=== PATIENT | female | born 1985 | race Caucasian/White ===

== ENCOUNTER 2020-10-12 16:18 | Emergency (ER) | payer OTHER, MEDICAID ==
[~2020-10-12] VITALS: Ht 160 cm; Wt 130.0 kg
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
[2020-10-12 17:27] VITALS: BP 142/95
== END 2020-10-12 17:27 | disposition home or self-care (01) ==
LOC: ER 16:21
DX: S16.1XXA Strain of muscle, fascia and tendon at neck level, initial encounter (principal); V89.2XXA Person injured in unspecified motor-vehicle accident, traffic, initial encounter
CPT/HCPCS: 72100; 72125

== ENCOUNTER 2022-11-06 15:43 | Emergency (ER) | payer MEDICAID ==
[~2022-11-06] VITALS: Ht 160 cm; Wt 132.0 kg
[2022-11-06] MEDS ORDERED: NS IV 1000 ML 1,000 ML IV STA (15:49)
--- NOTE | 2022-11-06 15:53 | ED General ---
General Chief Complaint: General Problems/Pain Stated Complaint: N/V - HEADACHE - CHEST PAIN Nursing Triage Note: PT CO OF N/V TODAY DENIES DIARRHEA. STATES HAS HAD INTERMITTENT C/P TODAY. PT ALSO CO OF DIZZINESS. Source of Information: Patient Exam Limitations: No Limitations History of Present Illness Date Seen by Provider: November 06, 2022 Time Seen by Provider: 15:50 Initial Comments Patient is a 37-year-old female with a history of type 2 diabetes, hypertension who presents ED with nausea, vomiting, diarrhea and chest pain. Patient states she woke up this morning had 2 episodes of vomiting 2 episodes of diarrhea without any blood, mucus or bile. She reports intermittent substernal chest pain described as someone sitting on her chest. Last for about 2030 minutes. Associate shortness of breath. Not associated with the vomiting or diarrhea. Denies of any current chest pain, cough, shortness of breath, abdominal pain, dysuria. She did report some dizziness and lightheadedness today which only complaint on arrival is lightheadedness. She reports her blood sugars well controlled. Normal urination. No fever, chills, body aches, neck pain, visual changes, unilateral muscle weakness or sensory changes. No known cardiac history. Allergies and Home Medications Allergies Coded Allergies: Penicillins (Verified Allergy, Unknown, 11/06/22) latex (Verified Allergy, Unknown, 11/06/22) Patient Home Medication List Home Medication List Reviewed: Yes Ondansetron (Ondansetron Odt) 4 Mg Tab.rapdis, 4 MG SL Q4H PRN for NAUSEA/VOMITING Prescribed by: LIZABETH ZUNIGA on 11/06/22 8818 Review of Systems Review of Systems Constitutional: No diaphoresis, No fever; malaise, weakness EENTM: No ear pain, No blurred vision, No double vision Respiratory: No cough, No dyspnea on exertion, No short of breath, No wheezing Cardiovascular: chest pain Gastrointestinal: No abdominal pain; diarrhea, nausea, vomiting Genitourinary: No decreased output, No discharge Musculoskeletal: No back pain, No joint pain Skin: No change in color, No change in hair/nails All Other Systems Reviewed Negative Unless Noted: Yes Past Agkdsux-Rfxwrl-Xnwpru Hx Past Medical History Surgeries: Yes Respiratory: No Cardiac: No Neurological: No Genitourinary: No Gastrointestinal: No Musculoskeletal: No Endocrine: Yes Diabetes, Non-Insulin dep HEENT: No Cancer: No Psychosocial: Yes Bipolar, Depression Integumentary: No Physical Exam Vital Signs Vital Signs - First Documented 11/06/22 15:45 Temp 36.0 Pulse 91 Resp 18 B/P (MAP) 143/78 (99) Pulse Ox 100 Capillary Refill : Less Than 3 Seconds Height, Weight, BMI Height: '" Weight: lbs. oz. kg; 51.00 BMI Method: General Appearance: No Apparent Distress, WD/WN Eyes: Bilateral Eye Normal Inspection, Bilateral Eye PERRL, Bilateral Eye EOMI HEENT: PERRL/EOMI, TMs Normal, Normal ENT Inspection, Pharynx Normal Neck: Full Range of Motion, Normal Inspection, Non Tender, Supple Respiratory: Chest Non Tender, Lungs Clear, Normal Breath Sounds, No Accessory Muscle Use, No Respiratory Distress Cardiovascular: Regular Rate, Rhythm, No Edema, No Gallop, No JVD Gastrointestinal: Normal Bowel Sounds, No Organomegaly, No Pulsatile Mass, Non Tender Back: Normal Inspection, No CVA Tenderness, No Vertebral Tenderness Extremity: Normal Capillary Refill, Normal Inspection, Normal Range of Motion, Non Tender Neurologic/Psychiatric: Alert, Oriented x3, No Motor/Sensory Deficits, Normal Mood/Affect, 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 Skin: Normal Color, Warm/Dry Progress/Results/Core Measures Suspected Sepsis SIRS Temperature: Pulse: 91 Respiratory Rate: 18 Laboratory Tests 11/06/22 15:50: White Blood Count 11.1H Blood Pressure 143 /78 Mean: 99 Laboratory Tests 11/06/22 15:50: Creatinine 0.85, Platelet Count 308, Total Bilirubin 0.4 Results/Orders Lab Results Laboratory Tests Test 11/06/22 15:50 11/06/22 16:00 11/06/22 18:11 Range/Units White Blood Count 11.1 H 4.3-11.0 10^3/uL Red Blood Count 4.17 3.80-5.11 10^6/uL Hemoglobin 12.1 11.5-16.0 g/dL Hematocrit 37 35-52 % Mean Corpuscular Volume 89 80-99 fL Mean Corpuscular Hemoglobin 29 25-34 pg Mean Corpuscular Hemoglobin Concent 33 32-36 g/dL Red Cell Distribution Width 13.0 10.0-14.5 % Platelet Count 308 130-400 10^3/uL Mean Platelet Volume 10.8 9.0-12.2 fL Immature Granulocyte % (Auto) 0 % Neutrophils (%) (Auto) 58 42-75 % Lymphocytes (%) (Auto) 36 12-44 % Monocytes (%) (Auto) 4 0-12 % Eosinophils (%) (Auto) 1 0-10 % Basophils (%) (Auto) 1 0-10 % Neutrophils # (Auto) 6.5 1.8-7.8 10^3/uL Lymphocytes # (Auto) 4.0 1.0-4.0 10^3/uL Monocytes # (Auto) 0.4 0.0-1.0 10^3/uL Eosinophils # (Auto) 0.1 0.0-0.3 10^3/uL Basophils # (Auto) 0.1 0.0-0.1 10^3/uL Immature Granulocyte # (Auto) 0.0 0.0-0.1 10^3/uL Sodium Level 140 135-145 MMOL/L Potassium Level 3.7 3.6-5.0 MMOL/L Chloride Level 106 98-107 MMOL/L Carbon Dioxide Level 22 21-32 MMOL/L Anion Gap 12 5-14 MMOL/L Blood Urea Nitrogen 13 7-18 MG/DL Creatinine 0.85 0.60-1.30 MG/DL Estimat Glomerular Filtration Rate 89 BUN/Creatinine Ratio 15 Glucose Level 157 H 70-105 MG/DL Calcium Level 8.9 8.5-10.1 MG/DL Corrected Calcium 9.1 8.5-10.1 MG/DL Magnesium Level 1.9 1.6-2.4 MG/DL Total Bilirubin 0.4 0.1-1.0 MG/DL Aspartate Amino Transf (AST/SGOT) 16 5-34 U/L Alanine Aminotransferase (ALT/SGPT) 22 0-55 U/L Alkaline Phosphatase 77 40-136 U/L Troponin I < 0.028 < 0.028 <0.028 NG/ML Total Protein 7.2 6.4-8.2 GM/DL Albumin 3.8 3.2-4.5 GM/DL Lipase 16 8-78 U/L Urine Color YELLOW Urine Clarity CLEAR Urine pH 6.0 5-9 Urine Specific [place] 1.020 1.016-1.022 Urine Protein NEGATIVE NEGATIVE Urine Glucose (UA) NEGATIVE NEGATIVE Urine Ketones NEGATIVE NEGATIVE Urine Nitrite NEGATIVE NEGATIVE Urine Bilirubin NEGATIVE NEGATIVE Urine Urobilinogen 0.2 < = 1.0 MG/DL Urine Leukocyte Esterase NEGATIVE NEGATIVE Urine RBC (Auto) NEGATIVE NEGATIVE Urine RBC NONE /HPF Urine WBC 0-2 /HPF Urine Squamous Epithelial Cells 5-10 /HPF Urine Crystals PRESENT H /LPF Urine Amorphous Sediment RARE PENELOPE URATES H /LPF Urine Bacteria FEW H /HPF Urine Casts NONE /LPF Urine Mucus SMALL H /LPF Urine Culture Indicated NO My Orders Orders - MELISSA GOODEN PA Ekg Tracing (11/06/22 15:45) Cbc With Automated Diff (11/06/22 15:49) Comprehensive Metabolic Panel (11/06/22 15:49) Lipase (11/06/22 15:49) Magnesium (11/06/22 15:49) Troponin I Michael (11/06/22 15:49) Chest 1 View, Ap/Pa Only (11/06/22 15:49) Ua Culture If Indicated (11/06/22 15:49) Ns Iv 1000 Ml (Sodium Chloride 0.9%) (11/06/22 15:49) Ondansetron Injection (Zofran Injectio (11/06/22 16:00) Troponin I Leslie (11/06/22 17:50) Medications Given in ED Current Medications Medications Dose Ordered Sig/Gonzalez Route Start Time Stop Time Status Last Admin Dose Admin Ondansetron HCl 4 mg ONCE ONCE IVP 11/06/22 16:00 11/06/22 16:01 DC 11/06/22 15:59 4 MG Vital Signs/I&O 11/06/22 11/06/22 15:45 19:02 Temp 36.0 Pulse 91 90 Resp 18 18 B/P (MAP) 143/78 (99) 137/84 Pulse Ox 100 100 Capillary Refill : Less Than 3 Seconds Blood Pressure Mean: 99 ECG Comment Normal sinus rhythm, 85 bpm, QRS duration 84 MS, QTc 392 MS Departure Communication (PCP) Reviewed previous ER visits, H&P, lab testing. Differential diagnosis of viral syndrome, ACS, costochondritis, pneumonia, gastroenteritis, UTI. No current chest pain. Intermittent chest pressure today with episodes of vomiting diarrhea lightheadedness headache. Refused anything for pain. Patient was given dose of Zofran for nausea and started on liter of fluid. She was afebrile. She was not hypoxic or tachycardic. No recent travels or surgeries. Low perc score. Heart score of 2. Hypertension and diabetes well controlled. EKG showed normal sinus rhythm without evidence of ST elevation or depression. Chest x-ray was negative for pneumonia, pneumothorax, mediastinal widening. General lab work with cardiac work-up was ordered. CBC, CMP was grossly unremarkable. Normal troponin. Urinalysis was negative for infection. Due to the chest pain and with cardiac risk factors a delta troponin was ordered which returned normal. She remained asymptomatic at this time here. Unclear if this is cardiac in nature. No pain with eating. Other sources would be esophagitis, gastritis, pleurisy. No right upper quadrant epigastric tenderness on palpation suggesting surgical abdomen. However due to the low heart score recommend outpatient follow-up. Provided cardiology outpatient follow-up. If any worsening pain to return back to ED. She may have associated viral syndrome with the vomiting and diarrhea. Will discharge with Zofran. Recommend oral hydration, Pedialyte. If any worsening symptoms return back to ED for further evaluation Impression Primary Impression: Chest pain Disposition: 01 HOME, SELF-CARE Condition: Stable Departure-Patient Inst. Decision time for Depature: 18:41 Referrals: [facility] [place] Primary Care Physician SNEHA MOMIN MD Patient Instructions: Chest Pain, Adult ED Add. Discharge Instructions: Zofran for nausea. Recommend staying hydrated. Drink Pedialyte. Outpatient cardiac follow-up for chest pain. Provided number and discharge instruction. Return back to ED if symptoms worsen. Clear liquid diet over the next 48 hours. All discharge instructions reviewed with patient and/or family. Voiced understanding. Scripts Ondansetron (Ondansetron Odt) 4 Mg Tab.rapdis 4 MG SL Q4H PRN for NAUSEA/VOMITING, #6 TAB Prov: MELISSA GOODEN 11/06/22 Work/School Note: Work Release Form Date Seen in the Emergency Department: November 06, 2022 Return to Work: November 08, 2022 MELISSA GOODEN November 06, 2022 15:52
[2022-11-06 15:57] LABS: BASOPHILS # (AUTO) 0.1 10^3/uL (0.0-0.1); BASOPHILS % (AUTO) 1 % (0-10); EOSINOPHILS # (AUTO) 0.1 10^3/uL (0.0-0.3); EOSINOPHILS % (AUTO) 1 % (0-10); HEMATOCRIT 37 % (35-52); HEMOGLOBIN 12.1 g/dL (11.5-16.0); LYMPHOCYTES % (AUTO) 36 % (12-44); MEAN CORPUSCULAR HEMOGLOBIN 29 pg (25-34); MEAN CORPUSCULAR HGB CONC 33 g/dL (32-36); MEAN CORPUSCULAR VOLUME 89 fL (80-99); MEAN PLATELET VOLUME 10.8 fL (9.0-12.2); MONOCYTES # (AUTO) 0.4 10^3/uL (0.0-1.0); MONOCYTES % (AUTO) 4 % (0-12); NEUTROPHILS # (AUTO) 6.5 10^3/uL (1.8-7.8); NEUTROPHILS % (AUTO) 58 % (42-75); PLATELET COUNT 308 10^3/uL (130-400); WHITE BLOOD COUNT 11.1 10^3/uL (4.3-11.0)
[2022-11-06] MEDS ORDERED: ONDANSETRON 4 MG/2 ML (SDV) Z0FRAN IVP ONE (16:00)
[2022-11-06 16:11] LABS: BILIRUBIN,URINE NEGATIVE (NEGATIVE); CLARITY,URINE CLEAR; COLOR,URINE YELLOW; GLUCOSE, URINE (UA) NEGATIVE (NEGATIVE); KETONES,URINE NEGATIVE (NEGATIVE); LEUKOCYTE ESTERASE ,URINE NEGATIVE (NEGATIVE); NITRITE,URINE NEGATIVE (NEGATIVE); PROTEIN,URINE NEGATIVE (NEGATIVE)
[2022-11-06 16:11] LABS: ALBUMIN 3.8 GM/DL (3.2-4.5); CHLORIDE 106 MMOL/L (98-107); POTASSIUM 3.7 MMOL/L (3.6-5.0); SODIUM 140 MMOL/L (135-145)
[2022-11-06 16:12] LABS: CALCIUM 8.9 MG/DL (8.5-10.1)
--- NOTE | 2022-11-06 16:12 | Diagnostic Imaging Report ---
INDICATION: Chest pain. EXAMINATION: Single AP view of chest was obtained. COMPARISON: No previous study is available for comparison at this time. FINDINGS: Heart size and pulmonary vasculature are within normal limits, and the lungs are clear, bilaterally. IMPRESSION: Unremarkable chest. Dictated by: Dictated on workstation # [id number]
[2022-11-06 16:14] LABS: GLUCOSE 157 MG/DL (70-105); TOTAL PROTEIN 7.2 GM/DL (6.4-8.2)
[2022-11-06 16:15] LABS: CARBON DIOXIDE 22 MMOL/L (21-32)
[2022-11-06 16:16] LABS: BILIRUBIN,TOTAL 0.4 MG/DL (0.1-1.0)
[2022-11-06 16:17] LABS: ALKALINE PHOSPHATASE 77 U/L (40-136); CREATININE SERUM 0.85 MG/DL (0.60-1.30); GFR ESTIMATED 89
[2022-11-06 16:18] LABS: BUN/CREATININE RATIO 15
[2022-11-06 16:20] LABS: ALANINE AMINOTRANSFERASE 22 U/L (0-55)
[2022-11-06 16:21] LABS: MAGNESIUM 1.9 MG/DL (1.6-2.4)
[2022-11-06 16:22] LABS: LIPASE 16 U/L (8-78)
[2022-11-06 16:22] LABS: AMORPHOUS SEDIMENT,UR RARE AMOR URATES /LPF; BACTERIA,URINE FEW /HPF; WBC,URINE 0-2 /HPF
[2022-11-06] MEDS ORDERED: ONDA4TAB11 SL (18:42)
[2022-11-06 19:02] VITALS: BP 137/84
== END 2022-11-06 19:02 | disposition home or self-care (01) ==
LOC: EDUNIT# 15:43 → ER 15:44
DX: R07.2 Precordial pain (principal); R11.2 Nausea with vomiting, unspecified; R19.7 Diarrhea, unspecified; R42 Dizziness and giddiness; R51.9 Headache, unspecified; Z91.040 Latex allergy status; Y04.8XXA Assault by other bodily force, initial encounter
CPT/HCPCS: 36415; 71045; 80053; 81000; 83690; 83735; 84484; 85025; 93005